=== PATIENT | female | born 1995 | race Hispanic/Latino ===

== ENCOUNTER 2022-08-29 16:57 | Emergency (ER) | payer OTHER ==
[~2022-08-29] VITALS: Ht 162.6 cm; Wt 94.3 kg
[2022-08-29 17:47] LABS: BASOPHILS % (AUTO) 0.6 % (0.0-5.0); EOSINOPHILS % (AUTO) 2.1 % (0.0-8.0); HEMATOCRIT 29.7 % (36-48); LYMPHOCYTES % (AUTO) 34.4 % (21.0-51.0); MEAN CORPUSCULAR HEMOGLOBIN 23.3 pg (27.0-33.0); MEAN CORPUSCULAR HGB CONC 30.3 g/dL (32.0-36.0); MEAN CORPUSCULAR VOLUME 76.9 fL (79-99); NEUTROPHILS % (AUTO) 56.6 % (40.0-77.0); PLATELET COUNT (AUTO) 404 K/uL (130-400); RED BLOOD CELL COUNT(AUTO) 3.86 MIL/uL (4.00-5.50); RED CELL DISTRIBUTION WIDTH 16.4 % (11.0-15.5); WHITE BLOOD COUNT (AUTO) 8.8 K/uL (4.8-10.8)
[2022-08-29 18:01] LABS: CREATININE 0.9 mg/dL (0.5-1.5); POTASSIUM 3.9 mmol/L (3.5-5.1)
[2022-08-29 18:06] LABS: ALBUMIN 3.5 g/dL (3.5-5.0); TOTAL PROTEIN, SERUM 7.9 g/dL (6.0-8.3)
[2022-08-29 19:05] LABS: APPEARANCE,URINE CLOUDY (CLEAR); BILIRUBIN,URINE NEGATIVE (NEGATIVE); COLOR,URINE LIGHT-BROWN (YELLOW); GLUCOSE, URINE (UA) NEGATIVE (NEGATIVE); KETONES,URINE NEGATIVE (NEGATIVE); LEUKOCYTE ESTERASE ,URINE 75 Leu/uL (NEGATIVE); NITRATE,URINE NEGATIVE (NEGATIVE); OCCULT BLOOD,URINE LARGE (NEGATIVE); PROTEIN,URINE 50 mg/dL (NEGATIVE); UROBILINOGEN,URINE 0.2 mg/dL (0.2-1.0)
[2022-08-29 19:07] LABS: HCG,QUALITATIVE URINE NEGATIVE (NEGATIVE)
[2022-08-29 19:11] LABS: BACTERIA,URINE RARE /HPF (None Seen); MUCUS,URINE RARE LPF (None Seen); RBC,URINE TNTC /HPF (0-1); SQUAMOUS EPITHELIAL CELL,UR RARE /HPF (0-2); WBC,URINE 26-50 /HPF (0-1)
[2022-08-29 19:30] VITALS: BP 130/62
== END 2022-08-29 20:07 | disposition home or self-care (01) ==
LOC: EDBD 16:57 → EDH 16:57
DX: N93.8 Other specified abnormal uterine and vaginal bleeding (principal)
CPT/HCPCS: 36415; 76856; 80053; 81001; 81025; 84703; 85025; 87088

== ENCOUNTER 2025-03-09 23:36 | Emergency (ER) | payer BC, OTHER ==
[~2025-03-09] VITALS: Ht 162.6 cm; Wt 92.1 kg
[2025-03-10 00:57] LABS: CREATININE 0.9 mg/dL (0.5-1.0); GLOMERULAR FILTR. RATE CALC 89.0 mL/min (>90); GLUCOSE,RANDOM 111.0 mg/dL (70-105); IMMATURE GRANULOCYTE ABSOLUTE 0.02 K/uL (0-1); NUCLEATED RED BLOOD CELLS 0.0 % (0.0-0.19); PLATELET COUNT (AUTO) 354 K/uL (130-400); RED BLOOD CELL COUNT(AUTO) 5.04 MIL/uL (4.00-5.50); RED CELL DISTRIBUTION WIDTH 18.8 % (11.0-15.5); SODIUM SERUM 141.0 mmol/L (136-145); UREA NITROGEN, BLOOD 17.0 mg/dL (7-18); WHITE BLOOD COUNT (AUTO) 8.1 K/uL (4.8-10.8)
--- NOTE | 2025-03-10 01:07 | ERN ---
ED Note History of Present Illness Stated Complaint: C/O NUMBNESS TO HANDS AND FEET, MUSCLE SPASMS Chief Complaint: Numbness Time Seen by MD: 23:54 Dictation: This is a 29-year-old female who came in with history of numbness that has been going on since July 2024. She stated that she feels numb in her hands and feet. She had extensive workup including MRI of brain which was negative. She was tested for lupus and collagen vascular disease -workup negative has been. Multiple sclerosis was also ruled out She stated that she also felt some numbness in her scalp today. She was Googling and thought she might have Lyme disease and she came in for evaluation She appeared generally anxious but denied any facial droop, motor weakness, blurred vision diplopia or seizure activity Temperature 98.3 pulse 119 respirations 20 blood pressure 135/85 with a pulse oximetry of 96% on room air Allergies: Coded Allergies: No Known Allergies (Unverified Allergy, Unknown, 08/29/22) Home Meds Active Scripts Hydroxyzine HCl (Hydroxyzine HCl) 25 Mg Tablet, 1 TAB PO TID for anxiety for 5 Days, #15 TAB 0 Refills Prov:SENIA PASTOR MD 03/10/25 Past Medical History Past Medical History: Other Additional Past Medical Hx: PCOS Surgical History: None Family History: Negative Social History: Negative LMP: Mar 09, 2025 RN Note Reviewed/Agreed w/PFSH: Yes Review of System Dictation Constitutional: Negative for fever,chills, and weight loss Eyes: Negative for injury, pain,redness, and discharge ENT: Negative for injury,pain or swelling Cardiovascular: Negative for chest pain, palpitations, and edema Respiratory: Negative for shortness of breath, cough, and wheezing, Abdomen/GI: Negative for abdominal pain, nausea, vomiting, diarrhea, and constipation Back: Negative for injury and pain : Negative for injury, bleeding and discharge MS/Extremity: Negative for injury and deformity Skin: Negative for rash, and discoloration Neuro: Negative for headache, weakness, positive for numbness hands and feet but denied, tingling, and seizure Psych: Negative for suicide ideation, homicidal ideation, and hallucinations Initial Vital Sign VS Vital Signs Date Time Temp Pulse Resp B/P (MAP) Pulse Ox O2 Delivery O2 Flow Rate FiO2 03/09/25 23:38 98.2 119 20 135/88 96 Room Air 03/09/25 23:53 0 21 Physical Exam Dictation General: awake, alert, NAD overweight female Head/Face: Normocephalic, atraumatic Eyes: PERRL, EOMI, vision at baseline ENT: oral cavity clear, TMs clear, no signs of infection Neck: Trachea midline, supple, no nuchal rigidity Cardiovascular: RRR, normal S1/S2, No MRGs, no JVD Respiratory: CTAB, no respiratory distress, No rales or wheezes Abdomen: Soft, non-tender, non-distended, normal bowel sounds, no guarding or rebound. Skin: Warm, dry, normal turgor, no rash MS/Extremity: Pulses equal, no cyanosis, neurovascular intact, FROM Neuro: COAx4, GCS 15, strength 5/5, CN 2-12 intact, normal cerebellar exam, normal gait, Psych: Normal behavior, mood, and affect normal Extremities-trace edema without any palpable cords, Homans sign is negative Results (Laboratory/Radiology) Laboratory/Radiology Laboratory Tests Test 03/10/25 00:32 White Blood Count 8.1 K/uL (4.8-10.8) Red Blood Count 5.04 MIL/uL (4.00-5.50) Hemoglobin 11.8 g/dL (12.0-16.0) L Hematocrit 39.0 % (36-48) Mean Corpuscular Volume 77.4 fL (79-99) L Mean Corpuscular Hemoglobin 23.4 pg (27.0-33.0) L Mean Corpuscular Hemoglobin Concent 30.3 g/dL (32.0-36.0) L Red Cell Distribution Width 18.8 % (11.0-15.5) H Platelet Count 354 K/uL (130-400) Mean Platelet Volume 11.3 fL (7.5-10.5) H Immature Granulocyte % (Auto) 0.2 % (0-1) Neutrophils (%) (Auto) 61.2 % (40.0-77.0) Lymphocytes (%) (Auto) 30.0 % (21.0-51.0) Monocytes (%) (Auto) 6.6 % (3.0-13.0) Eosinophils (%) (Auto) 1.5 % (0.0-8.0) Basophils (%) (Auto) 0.5 % (0.0-5.0) Neutrophils # (Auto) 5.0 K/uL (1.8-7.7) Lymphocytes # (Auto) 2.4 K/uL (1.0-4.8) Monocytes # (Auto) 0.5 K/uL (0.1-1.0) Eosinophils # (Auto) 0.12 K/uL (0.00-0.70) Basophils # (Auto) 0.04 K/uL (0.00-0.20) Absolute Immature Granulocyte (auto 0.02 K/uL (0-1) Nucleated Red Blood Cells 0.0 % (0.0-0.19) Red Blood Cell Morphology See comments Sodium Level 141 mmol/L (136-145) Potassium Level 3.6 mmol/L (3.5-5.1) Chloride Level 103 mmol/L (101-111) Carbon Dioxide Level 29 mmol/L (21-32) Blood Urea Nitrogen 17 mg/dL (7-18) Creatinine 0.9 mg/dL (0.5-1.0) Glomerular Filtration Rate Calc 89 mL/min (>90) Random Glucose 111 mg/dL (70-105) H Total Calcium 9.4 mg/dL (8.5-10.1) Magnesium Level 1.90 mg/dL (1.80-2.40) Human Chorionic Gonadotropin, Quant 0 mIU/mL (0-5) Labs Reviewed?: Yes ED Course ED Course Orders Procedure Category Date Status Time Cbc With Differential LAB 03/09/25 Complete 23:55 Basic Metabolic Panel LAB 03/09/25 Complete 23:55 Hcg,Quantitative LAB 03/09/25 Complete 23:55 Magnesium LAB 03/09/25 Complete 23:55 Hydroxyzine 25mg Tab PHA 03/10/25 Complete (Atarax 25mg Tab) 02:00 Current Medications Medications (Trade) Dose Ordered Sig/Janny Route PRN Reason Start Time Stop Time Status Last Admin Dose Admin Hydroxyzine HCl (ATArax 25MG TAB) 25 mg ONCE ONCE PO 03/10/25 02:00 03/10/25 02:01 DC 03/10/25 02:05 Vital Signs Date Time Temp Pulse Resp B/P (MAP) Pulse Ox O2 Delivery O2 Flow Rate FiO2 03/10/25 02:06 98.4 102 20 119/43 98 Room Air* 0 21 7/17/25 23:53 98.4 124 20 132/84 98 Room Air* 0 21 03/09/25 23:38 98.2 119 20 135/88 96 Room Air We will perform diagnostic labs, and administer medications according to the patient's complaint. Once the results are available, will review and personally interpreted the labs to rule out any acute life-threatening emergency the trach require immediate intervention and treatment. I will then re-evaluate the patient after treatment and diagnostic exams have return to determine whether the patient requires any further testing, can safely be discharged home or need further admission to hospital for additional treatment and evaluation. Labs reviewed CBC showed a hemoglobin of 11.8 but otherwise normal WBC and platelets. BNP 7 is with a normal limits. Magnesium 1.9 and urine test is negative. I had a very long discussion with the patient and spouse and with a extensive negative workup and the chronicity of symptoms I recommended to her that she should see a neurologist again to follow up. I explained to her that perhaps patient is having some type of neuropathy symptoms and she indicated to me that lupus and other collagen vascular disease workup was essentially negative. Lyme disease is a send out test and I recommended that she should get that done at her primary care physician's office to have continuity of care. Both patient and verbalized full understanding. I did understand that the patient is going through extreme stress at work and she was tearful. Gave her a trial of hydroxyzine and she is willing to try at home while she follows up with her primary care physician Medical Decision Making MDM Differential diagnosis: Peripheral neuropathy, mononeuritis multiplex, multiple sclerosis, collagen vascular disease Rationale: Tests considered and ordered secondary to shared decision making include: Previous outside records reviewed: Old ER visits. Risk of complication and/or morbidity or mortality of patient management: None Medications-Per medication reconciliation Need for hospitalization: Patient does not meet criteria for hospitalization. Need for emergency major/minor surgery: No There are no social concerns with this patient. Prescription drug management Prescriptions will include symptomatic care Patient's prior external medical records from other ER visits were reviewed by me as indicated. Prior testing and results from previous visits were reviewed. Prior tests were taken into account with medical decision making and resource utilization, independent historian/historians were used to obtain complete medical history. I independently interpreted the test that were performed, results were reviewed by me and considered findings on radiology if ordered. Medical management and examination interpretation discussions were had by me with other qualified healthcare professionals as indicated for the patient's care. Problem List Problem List: (1) Sensory neuropathy (2) Anxiety (3) Obesity (BMI 30-39.9) DX & DISP Disposition: Discharge Departure Impression: Primary Impression: Sensory neuropathy Additional Impressions: Anxiety, Obesity (BMI 30-39.9) Condition: Stable Scripts Hydroxyzine HCl (Hydroxyzine HCl) 25 Mg Tablet 1 TAB PO TID for anxiety for 5 Days, #15 TAB 0 Refills Prov: SENIA PASTOR MD 03/10/25 Additional Instructions: Patient and the caregiver have been informed of all the diagnostic tests and the imaging conducted during the today's visit to the emergency room and has verbalized understanding of the results I have personally reviewed and interpreted all diagnostic exams performed here in the ER today as well as the vital signs documented by the nursing staff. The patient is now being discharged to home and should follow up with the primary care physician or the specialist as directed by the ER staff. Follow-up with primary care provider in 1 to 2 days. Take medications as directed here in the emergency room. Okay to continue home medications unless otherwise discussed during your visit in the emergency room today. Return to your nearest emergency room if symptoms worsen or if there is no improvement. Call 911 if you need immediate assistance. Take Tylenol or Motrin [id number] nter as needed and if no contraindications are present. Increase oral hydration. A wound culture or urine culture was ordered here in the emergency room department please follow-up with primary care provider and advise them to get repeat ports from our facility. If you had any Eleuterio wrap/splints that were applied here, please do not remove them until you see your primary care or s pecialty. Patient will follow up with the PCP to get Lyme disease testing and heavy metal testing if she chooses to. I also recommended a trial of hydroxyzine due to very severe stress at work Referrals: SELF,REFERRAL (PCP) SENIA PASTOR MD Mar 10, 2025 01:07
[2025-03-10 01:08] LABS: HCG,QUANTITATIVE 0.0 mIU/mL (0-5)
[2025-03-10] MEDS ORDERED: HYDR-3421 PO (01:43)
[2025-03-10 02:06] VITALS: BP 119/43; PULSE 102; RESP 20; TEMP 98.4; O2SAT 98
== END 2025-03-10 02:14 | disposition home or self-care (01) ==
LOC: EDH 23:36
DX: G62.9 Polyneuropathy, unspecified (principal); F41.9 Anxiety disorder, unspecified; R10.2 Pelvic and perineal pain; E66.9 Obesity, unspecified; Z68.30 Body mass index [BMI] 30.0-30.9, adult; Z79.899 Other long term (current) drug therapy
CPT/HCPCS: 36415; 80048; 83735; 84702; 85025; 99283